=== PATIENT | female | born 1930 | race Two or more races ===

== ENCOUNTER → 2016-10-16 | Outpatient (CLI) | payer MEDICARE, OTHER ==
--- NOTE | 2016-10-16 12:54 | RADRPT ---
PROCEDURE: XR right knee. CLINICAL INDICATION: Knee pain TECHNIQUE: AP weightbearing, PA weightbearing, lateral weightbearing and sunrise views are availab le for review. COMPARISON: None available FINDINGS: There is severe osteoarthrosis involving the medial tibial femoral compartment and mild osteoarthros is involving the patellofemoral compartment. This is associated with joint space narrowing, subchond ral sclerosis and osteophytosis. There is otherwise normal mineralization, architecture and alignment. No fractures are identified. No osseous lesions are identified. The soft tissues are unremarkable. IMPRESSION: Severe osteoarthrosis involving the medial tibial femoral compartment and mild osteoarthrosis involv ing the patellofemoral compartment. RPTAT: [facility] .Kp Hollingsworth MD, MD Date Time Electronically viewed and signed by .Kp Hollingsworth MD, on 10/16/2016 12:53 .B/
== END | disposition home or self-care (01) ==
LOC: HKI 11:25
PROVIDERS: ATTEND Orthopaedic Surgery
DX: M25.561 Pain in right knee (principal); M17.11 Unilateral primary osteoarthritis, right knee
CPT/HCPCS: 20610; G0463; J7327